=== PATIENT | male | born 1960 | race Caucasian/White ===

== ENCOUNTER 2017-11-30 11:38 | Emergency (ER) | payer BC ==
[2017-11-30] MEDS ORDERED: IPRATROPIUM/ALBUTEROL (0.5MG/3MG) NEB INH ONE (12:43)
[2017-11-30] MEDS ORDERED: METHYLPREDNISOLONE PF 125MG/VIAL IM ONE (12:45)
--- NOTE | 2017-11-30 12:49 | Emergency Department Record ---
History of Present Illness - General Chief Complaint: Confusion Stated Complaint: CONFUSION,TIRED,COUGH Time Seen by Provider: 11/30/17 12:23 Source: Patient, RN notes reviewed Mode of Arrival: Wheelchair - History of Present Illness Initial Comments: 2 weeks of congestion and confused and SOB with hypoxia and hypotension. Smokes 2 packs per day. confused started today and breathing much worse over the last 2 days. Onset/Timin -: Days(s) Associated Symptoms: Cough, Malaise, Weakness - Max Coma Scale Eye Response: (4) Open spontaneously Motor Response: (6) Obeys commands Verbal Response: (5) Oriented [place] Total: 15 - Related Data Home Medications Medication Instructions Recorded Confirmed Last Taken Hydrocodone/Acetaminophen [[place] 1 each PO QID 11/30/17 11/30/17 Unknown 5-325 Tablet] Lorazepam [Ativan] 0.5 mg PO ASDIR 11/30/17 11/30/17 Unknown Allergies Allergy/AdvReac Type Severity Reaction Status Date / Time No Known Allergies Allergy no Unverified 11/30/17 12:42 allergies Travel Screening - Travel/Exposure Within Last 30 Days Have you traveled within the last 30 days?: No Review of Systems Reviewed: No additional complaints except as noted below Constitutional: Reports: As per HPI, Weakness. Denies: Chills, Fever, Malaise, Night sweats, Weight change Eyes: Reports: As per HPI. Denies: Eye discharge, Eye pain, Photophobia, Vision change ENT: Reports: As per HPI, Congestion. Denies: Dental pain, Ear pain, Epistaxis , Hearing loss, Throat pain Respiratory: Reports: As per HPI, Cough, Dyspnea, Wheezes. Denies: Hemoptysis, Stridor Cardiovascular: Reports: As per HPI. Denies: Arrhythmia, Chest pain, Dyspnea on exertion, Edema, Murmurs, Orthopnea, Palpitations, Paroxysmal nocturnal dyspnea, Rheumatic Fever, Syncope Endocrine: Reports: As per HPI. Denies: Fatigue, Heat or cold intolerance, Polydipsia, Polyuria Gastrointestinal: Reports: As per HPI. Denies: Abdominal pain, Constipation, Diarrhea, Hematemesis, Hematochezia, Melena, Nausea, Vomiting Genitourinary: Reports: As per HPI. Denies: Dysuria, Frequency, Hematuria, Incontinence, Retention, Testicular pain, Testicular mass, Urgency Musculoskeletal: Reports: As per HPI. Denies: Arthralgia, Back pain, Gout, Joint swelling, Myalgia, Neck pain Skin: Reports: As per HPI. Denies: Bruising, Change in color, Change in hair/ nails, Lesions, Pruritus, Rash Neurological: Reports: As per HPI. Denies: Abnormal gait, Confusion, Headache, Numbness, Paresthesias, Seizure, Tingling, Tremors, Vertigo, Weakness Psychiatric: Reports: As per HPI. Denies: Anxiety, Auditory hallucinations, Depression, Homicidal thoughts, Suicidal thoughts, Visual hallucinations Hematological/Lymphatic: Reports: As per HPI. Denies: Anemia, Blood Clots, Easy bleeding, Easy bruising, Swollen glands Physical Exam - General General Appearance: Oriented x3, Cooperative, Severe distress - Head Head exam: Normal inspection - Eye Eye exam: Normal appearance, PERRL Pupils: Normal accommodation - ENT ENT exam: Normal exam, Mucous membranes moist, Normal external ear exam, Normal orophraynx, TM's normal bilaterally Ear exam: Normal external inspection. negative: External canal tenderness Nasal Exam: Normal inspection. negative: Discharge, Sinus tenderness Mouth exam: Normal external inspection, Tongue normal Teeth exam: Normal inspection. negative: Dental caries Throat exam: Normal inspection. negative: Tonsillar erythema, Tonsillar exudate - Neck Neck exam: Normal inspection, Full ROM. negative: Tenderness - Respiratory Respiratory exam: Normal lung sounds bilaterally. negative: Respiratory distress - Cardiovascular Cardiovascular Exam: Regular rate, Normal rhythm, Normal heart sounds - GI/Abdominal GI/Abdominal exam: Soft, Normal bowel sounds. negative: Tenderness - Rectal Rectal exam: Deferred - exam: Deferred - Extremities Extremities exam: Normal inspection, Full ROM, Normal capillary refill. negative: Tenderness - Back Back exam: Reports: Normal inspection, Full ROM. Denies: Muscle spasm, Rash noted, Tenderness - Neurological Neurological exam: Alert, Normal gait, Oriented X3, Reflexes normal - Psychiatric Psychiatric exam: Normal affect, Normal mood - Skin Skin exam: Dry, Intact, Normal color, Warm Course Vital Signs 11/30/17 11/30/17 12:19 12:38 Temperature 99.6 F Pulse Rate 101 H 104 H Respiratory 26 H 20 Rate Blood Pressure 78/56 Pulse Ox 70 L 87 L - Reevaluation(s) Reevaluation #1: discussed case with Dr. Nguyen ICU at [facility] and patient was acceptted and will transport via ambulance 11/30/17 14:27 Medical Decision Making - Data Complexity MDM Data: Labs Ordered and/or Reviewed (abg ph 7.27,pco2 68,Po2 65 ,hco3 30.1, trop t 0.1, bun 65, creat 3.6 ), X-Ray Ordered and/or Reviewed (copd infiltrate right lower lobe infectious or neoplasm), EKG Ordered and/or Reviewed (NSR,no acute changes) - Lab Data Result diagrams: 11/30/17 12:51 11/30/17 12:51 Disposition Clinical Impression: SOB (shortness of breath), Elevated troponin, COPD exacerbation Hypotension Qualifiers: Hypotension type: unspecified hypotension type Qualified Code(s): I95.9 - Hypotension, unspecified Respiratory failure Qualifiers: Chronicity: acute Respiratory failure complication: hypoxia Qualified Code(s): J96.01 - Acute respiratory failure with hypoxia Renal failure Qualifiers: Renal failure chronicity: acute Acute renal failure type: unspecified Qualified Code(s): N17.9 - Acute kidney failure, unspecified Pneumonia Qualifiers: Pneumonia type: due to unspecified organism Laterality: right Lung location: lower lobe of lung Qualified Code(s): J18.1 - Lobar pneumonia, unspecified organism Disposition: Acute Care Hospital Transfer Condition: (3) Guarded Forms: Patient Portal Access Time of Disposition: 14:29 Quality - Quality Measures Quality Measures: N/A - Blood Pressure Screening Does Patient Have Any of the Following: No Blood Pressure Classification: Normal BP Reading Systolic Measurement: 78 Diastolic Measurement: 56 Screening for High Blood Pressure: < Normal BP, F/U Not Required > [G8783]
--- NOTE | 2017-11-30 12:52 | Emergency Department Record ---
History of Present Illness - General Chief Complaint: Confusion Stated Complaint: CONFUSION,TIRED,COUGH Time Seen by Provider: 11/30/17 12:23 Mode of Arrival: Wheelchair - History of Present Illness Onset/Timin -: Days(s) Associated Symptoms: Cough, Malaise, Weakness - Max Coma Scale Eye Response: (4) Open spontaneously Motor Response: (6) Obeys commands Verbal Response: (5) Oriented [place] Total: 15 - Related Data Home Medications Medication Instructions Recorded Confirmed Last Taken Hydrocodone/Acetaminophen [[place] 1 each PO QID 11/30/17 11/30/17 Unknown 5-325 Tablet] Lorazepam [Ativan] 0.5 mg PO ASDIR 11/30/17 11/30/17 Unknown Allergies Allergy/AdvReac Type Severity Reaction Status Date / Time No Known Allergies Allergy no Unverified 11/30/17 12:42 allergies Travel Screening - Travel/Exposure Within Last 30 Days Have you traveled within the last 30 days?: No Review of Systems Constitutional: Reports: As per HPI, Weakness. Denies: Chills, Fever, Malaise, Night sweats, Weight change Eyes: Reports: As per HPI. Denies: Eye discharge, Eye pain, Photophobia, Vision change ENT: Reports: As per HPI, Congestion. Denies: Dental pain, Ear pain, Epistaxis , Hearing loss, Throat pain Respiratory: Reports: As per HPI, Cough, Dyspnea, Wheezes. Denies: Hemoptysis, Stridor Cardiovascular: Reports: As per HPI. Denies: Arrhythmia, Chest pain, Dyspnea on exertion, Edema, Murmurs, Orthopnea, Palpitations, Paroxysmal nocturnal dyspnea, Rheumatic Fever, Syncope Endocrine: Reports: As per HPI. Denies: Fatigue, Heat or cold intolerance, Polydipsia, Polyuria Gastrointestinal: Reports: As per HPI. Denies: Abdominal pain, Constipation, Diarrhea, Hematemesis, Hematochezia, Melena, Nausea, Vomiting Genitourinary: Reports: As per HPI. Denies: Dysuria, Frequency, Hematuria, Incontinence, Retention, Testicular pain, Testicular mass, Urgency Musculoskeletal: Reports: As per HPI. Denies: Arthralgia, Back pain, Gout, Joint swelling, Myalgia, Neck pain Skin: Reports: As per HPI. Denies: Bruising, Change in color, Change in hair/ nails, Lesions, Pruritus, Rash Neurological: Reports: As per HPI. Denies: Abnormal gait, Confusion, Headache, Numbness, Paresthesias, Seizure, Tingling, Tremors, Vertigo, Weakness Psychiatric: Reports: As per HPI. Denies: Anxiety, Auditory hallucinations, Depression, Homicidal thoughts, Suicidal thoughts, Visual hallucinations Hematological/Lymphatic: Reports: As per HPI. Denies: Anemia, Blood Clots, Easy bleeding, Easy bruising, Swollen glands Past Medical History - SOCIAL HISTORY Smoking Status: Current every day smoker Alcohol Use: None Drug Use: Occasional Drug Use Detail:: Marijuana - RESPIRATORY Hx Respiratory Disorders: No - CARDIOVASCULAR Hx Cardio Disorders: Yes Hx Hypertension: Yes - NEURO Hx Neuro Disorders: No - GI Hx GI Disorders: No - Hx Genitourinary Disorders: No - ENDOCRINE Hx Endocrine Disorders: No - MUSCULOSKELETAL Hx Musculoskeletal Disorders: Yes - PSYCH Hx Psych Problems: Yes Hx Anxiety: Yes - HEMATOLOGY/ONCOLOGY Hx Hematology/Oncology Disorders: No Family Medical History Any Significant Family History?: No Physical Exam - General General Appearance: Oriented x3, Cooperative, Severe distress - Head Head exam: Normal inspection - Eye Eye exam: Normal appearance, PERRL Pupils: Normal accommodation - ENT ENT exam: Normal exam, Mucous membranes moist, Normal external ear exam, Normal orophraynx, TM's normal bilaterally Ear exam: Normal external inspection. negative: External canal tenderness Nasal Exam: Normal inspection. negative: Discharge, Sinus tenderness Mouth exam: Normal external inspection, Tongue normal Teeth exam: Normal inspection. negative: Dental caries Throat exam: Normal inspection. negative: Tonsillar erythema, Tonsillar exudate - Neck Neck exam: Normal inspection, Full ROM. negative: Tenderness - Respiratory Respiratory exam: Normal lung sounds bilaterally. negative: Respiratory distress - Cardiovascular Cardiovascular Exam: Regular rate, Normal rhythm, Normal heart sounds - GI/Abdominal GI/Abdominal exam: Soft, Normal bowel sounds. negative: Tenderness - Rectal Rectal exam: Deferred - exam: Deferred - Extremities Extremities exam: Normal inspection, Full ROM, Normal capillary refill. negative: Tenderness - Back Back exam: Reports: Normal inspection, Full ROM. Denies: Muscle spasm, Rash noted, Tenderness - Neurological Neurological exam: Alert, Normal gait, Oriented X3, Reflexes normal - Psychiatric Psychiatric exam: Normal affect, Normal mood - Skin Skin exam: Dry, Intact, Normal color, Warm Course Vital Signs 11/30/17 11/30/1711/30/18 12:19 12:38 12:43 Temperature 99.6 F Pulse Rate 101 H 104 H Pulse Rate [ 102 H Bottom Turning Lathe [place] ] Respiratory 26 H 20 24 Rate Blood Pressure 78/56 Blood Pressure 82/57 [Left Arm] Pulse Ox 70 L 87 L 87 L 11/30/17 12:47 Temperature Pulse Rate 102 H Pulse Rate [ Bottom Turning Lathe [place] ] Respiratory 24 Rate Blood Pressure Blood Pressure [Left Arm] Pulse Ox 90 L Medical Decision Making - Data Complexity MDM Data: Labs Ordered and/or Reviewed, X-Ray Ordered and/or Reviewed ( bilateral infiltrate scant) - Lab Data Result diagrams: 11/30/17 12:51 11/30/17 12:51 Disposition Clinical Impression: SOB (shortness of breath), Renal failure, Elevated troponin, COPD exacerbation , Pneumonia Hypotension Qualifiers: Hypotension type: unspecified hypotension type Qualified Code(s): I95.9 - Hypotension, unspecified Respiratory failure Qualifiers: Chronicity: acute Respiratory failure complication: hypoxia Qualified Code(s): J96.01 - Acute respiratory failure with hypoxia Disposition: Acute Care Hospital Transfer Condition: (3) Guarded Forms: Patient Portal Access Quality - Quality Measures Quality Measures: N/A - Blood Pressure Screening Does Patient Have Any of the Following: No Blood Pressure Classification: Normal BP Reading Systolic Measurement: 78 Diastolic Measurement: 56 Screening for High Blood Pressure: < Normal BP, F/U Not Required > [G8783]
[2017-11-30] MEDS ORDERED: 0.9 % SODIUM CHLORIDE 1000ML 1,000 ML IV SCH ×2 (13:00→14:30)
[2017-11-30 13:15] LABS: BASO % 0.2 % (0-6); HEMATOCRIT 49.7 % (42.0-52.0); HEMOGLOBIN 15.9 gm/dl (14.0-18.0); LYMPH % 3.4 % (16-45); MEAN CELL VOLUME 104.2 fl (81-97); MEAN CORPUSCULAR HEMOGLOBIN 33.3 pg (27-33); MEAN PLATELET VOLUME 10.7 fl (7.4-10.4); MONO % 10.5 % (0-9); PLATELET COUNT 194 K/uL (130-400); RED BLOOD COUNT 4.77 M/uL (4.40-5.70); RED CELL DISTRIBUTION WIDTH 13.7 % (11.5-14.5)
[2017-11-30 13:31] LABS: CREATININE 3.6 mg/dL (0.7-1.2); TOTAL PROTEIN 7.5 g/dL (6.6-8.7)
[2017-11-30 13:35] LABS: ACETAMINOPHEN 5.6 ug/mL (10.0-30.0)
[2017-11-30 13:36] LABS: ALBUMIN 4.1 g/dL (4.0-5.0); ALKALINE PHOSPHATASE 104 U/L (40-129); ALT/SGPT 65 U/L (<41); AMMONIA 40 umol/L (16.0-60.0); AST/SGOT 87 U/L (10.0-50.0); BILIRUBIN,DIRECT 0.5 mg/dL (0-0.3)
[2017-11-30 13:37] LABS: ARTERIAL BLOOD GAS BASE EXCESS 1.5 mmol/L (-2 - 3); ARTERIAL BLOOD GAS HCO3 30.1 mmol/L (18-23); ARTERIAL BLOOD GAS PCO2 68.1 mmHg (35-48); ARTERIAL BLOOD GAS pH 7.27 (7.35-7.45)
[2017-11-30 13:38] LABS: SALICYLATE < 0.3 mg/dL (2.8-20)
[2017-11-30 13:45] LABS: INR 1.2; PARTIAL THROMBOPLASTIN TIME 33.8 SECONDS (24.5-39.1); PROTHROMBIN TIME (PATIENT) 12.5 SECONDS (9.5-12.1)
[2017-11-30] MEDS ORDERED: CEFTRIAXONE SODIUM 1 GM in 0.9 % SODIUM CHLORIDE 100ML 100 ML IVPB ONE (13:59)
[2017-11-30 14:00] LABS: ALLEN TEST NOT DONE
[2017-11-30] MEDS ORDERED: AZITHROMYCIN 250 MG TABLET PO ONE (14:26)
--- NOTE | 2017-12-01 20:50 | RADIOLOGY REPORT ---
EXAM: CHEST 1 VIEW HISTORY: SHORTNESS OF BREATH. TECHNIQUE: Portable single view of the chest. COMPARISON: Chest x-ray 04/25/2002. FINDINGS: Large lung volumes again seen with linear bands of opacity in both lower lobes, increased in the interim. There is also some patchy opacities in the right medial lower lung. No pleural effusion. The cardiomediastinal silhouette is within normal limits. Bony structures are unremarkable. IMPRESSION: FINDINGS OF COPD. THERE MAY BE SOME SUPERIMPOSED LUNG OPACITIES IN THE LOWER RIGHT LUNG. RECOMMEND FOLLOW-UP RADIOGRAPHS. JOB NUMBER: [id number] [facility]
== END 2017-11-30 15:55 | disposition short-term general hospital (02) ==
LOC: ER 11:38
DX: J44.0 Chronic obstructive pulmonary disease with (acute) lower respiratory infection (principal); J18.9 Pneumonia, unspecified organism; F17.210 Nicotine dependence, cigarettes, uncomplicated; I95.9 Hypotension, unspecified; I10 Essential (primary) hypertension; N17.9 Acute kidney failure, unspecified; J96.01 Acute respiratory failure with hypoxia; R79.89 Other specified abnormal findings of blood chemistry
CPT/HCPCS: 99285 ×2; 96372; 96365; 96361; 83605; 82140; 85730; 85610; 82375; 80076; 80048; 82803; 84484; 85379; 85027; 71045; 94640; 36600; 93005; 93010; G0480 ×3; 80320; 80329; J2930; J7030

== ENCOUNTER 2018-02-17 06:29 | Day surgery (SDC) | payer BC ==
[~2018-02-17 06:29] MED LIST: ACETAMINOPHEN 1,000 MG/100 ML BTL IV ONE; CEFAZOLIN 2 Gram 2 GM/50 ML BAG IVPB ONE
[2018-02-17] MEDS ORDERED: HYDROMORPHONE HCL 2 MG/ML VIAL IV ONE (06:30)
[2018-02-17] MEDS ORDERED: EPHEDRINE SULFATE 50 MG/ML ML IV ONE (06:30)
[2018-02-17] MEDS ORDERED: SEVOFLURANE 250 ML INH ONE (06:30)
[2018-02-17] MEDS ORDERED: HYDROCODONE/APAP 5/325MG TABLET PO ONE (06:30)
[2018-02-17] MEDS ORDERED: LIDOCAINE 2% MDV (20MG/ML) 20ML VIAL IV ONE (06:30)
[2018-02-17] MEDS ORDERED: PROPOFOL 10 MG/ML VIAL IV ONE (06:30)
[2018-02-17] MEDS ORDERED: BUPIVACAINE 0.25% W/EPI MPF 30ML VIAL IVP ONE (06:30)
[2018-02-17] MEDS ORDERED: MIDAZOLAM HCL 2MG/2ML VIAL IV ONE (06:30)
[2018-02-17] MEDS ORDERED: ONDANSETRON HCL IV 4 MG/2 ML VIAL IVP ONE (06:30)
[2018-02-17] MEDS ORDERED: FENTANYL PF 100MCG/2ML VIAL IV ONE (06:30)
[2018-02-17] MEDS ORDERED: DEXAMETHASONE 4 MG/ML 1ML VIAL IVP ONE (06:30)
[2018-02-17 06:47] LABS: BASO % 1.2 % (0-6); EOS % 2.4 % (0-6); GRAN % 66.8 % (47-80); HEMATOCRIT 47.6 % (42.0-52.0); HEMOGLOBIN 15.7 gm/dl (14.0-18.0); LYMPH % 21.2 % (16-45); MEAN CELL VOLUME 99.4 fl (81-97); MEAN CORPUSCULAR HEMOGLOBIN 32.8 pg (27-33); MONO % 8.4 % (0-9); PLATELET COUNT 232 K/uL (130-400); RED BLOOD COUNT 4.79 M/uL (4.40-5.70); RED CELL DISTRIBUTION WIDTH 13.1 % (11.5-14.5); WHITE BLOOD COUNT W/O DIFF 9.2 K/uL (4.2-12.2)
--- NOTE | 2018-02-19 12:30 | Operative Note ---
DATE OF SURGERY: 02/17/2018 Surgeon: Howard Pierson DO PREOPERATIVE DIAGNOSIS: Left inguinal hernia. POSTOPERATIVE DIAGNOSIS: Left inguinal hernia, indirect. OPERATION: Open left inguinal herniorrhaphy with mesh. Indication: The patient is a 57-year-old male who presented to the office with pain and bulging in his left inguinal region. On exam, he had a reducible hernia noted. We did discuss repair. Risks, benefits, and alternatives were discussed. Risks include bleeding, infection, acute or chronic pain, recurrence. He understood this fully. He is on chronic narcotics at home. Therefore, we did discuss potential pain control afterward as well. PROCEDURE: After consent was signed and questions answered, he was taken to the operating room and placed in a supine position. General anesthesia was administered per the department of anesthesia. The patient's left inguinal region was shaved of hair and prepped and draped in a sterile fashion. Adequate timeout was performed. His site and identity were confirmed. He did receive preoperative antibiotic as well as preoperative block per the department of anesthesia. At this time, the oblique region was anesthetized with a total of 4 mL of 0.25% Sensorcaine with epinephrine. A 4 cm oblique incision was made. This was carried down through Matthew layer to the aponeurosis of the external oblique. This was cleaned off. A stephen was made with a scalpel blade and enlarged through the superficial inguinal ring with Metzenbaum scissors. Care was taken not to injure the underlying ilioinguinal nerve or spermatic cord. At this time, superior and inferior flaps were developed and a [place] was placed on the spermatic cord. This was dissected free from the underlying transversalis fascia and retracted laterally with a Leo drain. Floor was inspected and noted to be free of any direct herniation. Cremasteric fibers were then taken down. There was an indirect hernia sac noted. High ligation was done with 0 Vicryl. At this time, a left-sided ProGrip mesh was obtained. This was placed in the floor of the inguinal canal with excellent overlap of the pubic tubercle. Stitches went to the level of pubic tubercle, the second portion of the inguinal ligament, internal oblique, aponeurosis. The lateral triangle was protected with the lateral aspect of the mesh. At this time, the aponeurosis was closed over the cord with 2-0 Vicryl, the Matthew layer was closed with 3-0 Vicryl, and skin was closed with 4-0 Vicryl. Steri-Strips were applied. He was taken to the recovery room in satisfactory condition. FINDINGS ON SURGERY: Left inguinal hernia, indirect, repaired as above. MTDD
== END 2018-02-17 09:50 | disposition home or self-care (01) ==
LOC: SUR 06:29
PROVIDERS: ATTEND Surgery
DX: K40.90 Unilateral inguinal hernia, without obstruction or gangrene, not specified as recurrent (principal); I10 Essential (primary) hypertension; J44.9 Chronic obstructive pulmonary disease, unspecified; F17.210 Nicotine dependence, cigarettes, uncomplicated
CPT/HCPCS: 49505; 00830; 64425; 85025; J2405; J3010; J1170; J0690; 76942

== ENCOUNTER 2019-05-18 14:40 | Emergency (ER) | payer BC ==
[2019-05-18] MEDS ORDERED: 0.9 % SODIUM CHLORIDE 1,000 ML BAG IV ONE (15:10)
[2019-05-18] MEDS ORDERED: PROMETHAZINE HCL 25 MG/ML VIAL IV ONE (15:10)
--- NOTE | 2019-05-18 15:18 | Emergency Department Record ---
History of Present Illness - General Chief complaint: Vomiting Stated complaint: VOMITTING Time Seen by Provider: 05/18/19 15:10 Source: Patient, Family () Mode of Arrival: Ambulatory Limitations: No limitations - History of Present Illness Initial comments: Pt with complaint of vomiting 5 days ago. Pt states he had a full day of vomiting "stomach fluid without blood". The next day he was fine and ate "some sausage and pizza". Since that "good day" he has had nausea everyday with decreased appetite and today began to have watery diarrhea. No fever, no travel, no new meds, no new foods, no sick contacts. Pt is a smoker but denies any alcohol use. No hx of similar. Pt asks "is this all from my anxiety?" Relates a life time hx of anxiety. Onset/Timin -: Days(s) Description of Vomiting: Watery Location: Diffuse Radiation: None Improves with: None Worsens with: None Associated Symptoms: Loss of appetite, Nausea/vomiting - Related Data Home Medications Medication Instructions Recorded Confirmed Last Taken Alprazolam [Xanax] 0.25 mg PO ASDIR 05/18/19 05/18/19 Unknown Hydrocodone/Acetaminophen [[place] 1 each PO ASDIR 05/18/19 05/18/19 Unknown 10-325 Tablet] Previous Rx's Medication Instructions Recorded Hydroxyzine Pamoate [Vistaril] 25 mg PO Q6H PRN 5 Days #20 capsule 05/18/19 Allergies Allergy/AdvReac Type Severity Reaction Status Date / Time No Known Allergies Allergy no Verified 05/18/19 14:57 allergies Travel Screening - Travel/Exposure Within Last 30 Days Have you traveled within the last 30 days?: No Review of Systems Constitutional: Denies: Chills, Fever, Malaise Eyes: Denies: Eye pain, Photophobia ENT: Denies: Congestion, Throat pain Respiratory: Denies: Cough, Dyspnea Cardiovascular: Denies: Arrhythmia, Chest pain, Syncope Endocrine: Denies: Fatigue Gastrointestinal: Reports: Abdominal pain, Diarrhea, Nausea, Vomiting. Denies: Hematemesis, Hematochezia Genitourinary: Denies: Dysuria, Incontinence Musculoskeletal: Denies: Back pain Skin: Denies: Bruising, Rash Neurological: Denies: Confusion, Headache, Tingling Psychiatric: Denies: Anxiety Hematological/Lymphatic: Denies: Anemia Past Medical History - SOCIAL HISTORY Smoking Status: Current every day smoker Alcohol Use: None Drug Use: None - RESPIRATORY Hx Respiratory Disorders: Yes Hx COPD: Yes Hx Pneumonia: Yes - CARDIOVASCULAR Hx Cardio Disorders: Yes Hx Hypertension: Yes - NEURO Hx Neuro Disorders: No - GI Hx GI Disorders: No - Hx Genitourinary Disorders: Yes Hx Kidney Stones: Yes (hx of) - ENDOCRINE Hx Endocrine Disorders: No - MUSCULOSKELETAL Hx Musculoskeletal Disorders: Yes Hx Arthritis: Yes - PSYCH Hx Psych Problems: Yes Hx Anxiety: Yes - HEMATOLOGY/ONCOLOGY Hx Hematology/Oncology Disorders: No Family Medical History Any Significant Family History?: Yes Hx Cancer: Mother Physical Exam - General General Appearance: Alert, Oriented x3, Cooperative, No acute distress - Head Head exam: Atraumatic, Normocephalic - Eye Eye exam: Normal appearance, PERRL, EOMI - ENT ENT exam: Mucous membranes moist Ear exam: Normal external inspection Nasal Exam: Normal inspection Mouth exam: Normal external inspection Teeth exam: Normal inspection Throat exam: Normal inspection - Neck Neck exam: Normal inspection, Full ROM. negative: Lymphadenopathy - Respiratory Respiratory exam: Normal lung sounds bilaterally. negative: Respiratory distress, Rhonchi, Wheezes - Cardiovascular Cardiovascular Exam: Regular rate, Normal rhythm. negative: Tachycardia - GI/Abdominal GI/Abdominal exam: Soft, Normal bowel sounds. negative: Distended, Guarding, Hy poactive bowel sounds, Rebound, Tenderness - Rectal Rectal exam: Deferred - exam: Deferred - Extremities Extremities exam: Normal inspection. negative: Tenderness - Back Back exam: Reports: Normal inspection - Neurological Neurological exam: Alert, Normal gait, Oriented X3 - Psychiatric Psychiatric exam: Normal affect, Normal mood - Skin Skin exam: Normal color. negative: Rash Course Vital Signs 05/18/19 14:54 Temperature 98.2 F Pulse Rate 76 Respiratory 18 Rate Blood Pressure 131/91 Pulse Ox 98 - Reevaluation(s) Reevaluation #1: 05/18/19 15:18 seen with in room. IV fluids, meds, labs, xrays ordered.. Medical Decision Making - Lab Data Result diagrams: 05/18/19 15:00 05/18/19 15:00 Disposition Disposition: Discharge Clinical Impression: Vomiting and diarrhea, Anxiety Disposition: Home, Self-Care Condition: (2) Stable Instructions: Acute Nausea and Vomiting (ED) Additional Instructions: Take meds as needed for nausea. Clear liquid diet and advance as tolerated. See you family doctor in 2-3 days Discuss colonoscopy with your family doctor - recommended at 51 year of age screening for colon cancer. Return to the ED as needed. Prescriptions: Hydroxyzine Pamoate [Vistaril] 25 mg PO Q6H PRN 5 Days #20 capsule PRN Reason: Nausea Forms: Patient Portal Access Time of Disposition: 16:20 Quality - Quality Measures Quality Measures: N/A - Blood Pressure Screening Does Patient Have Any of the Following: No Blood Pressure Classification: Pre-Hypertensive BP Reading Systolic Measurement: 126 Diastolic Measurement: 76 Screening for High Blood Pressure: < Pre-Hypertensive BP, F/U Documented > [G8950] Pre-Hypertensive Follow-up Interventions: Follow-up with rescreen every year.
[2019-05-18 15:26] LABS: EOS % 1.1 % (0-6); GRAN % 67.1 % (47-80); HEMATOCRIT 49.3 % (42.0-52.0); HEMOGLOBIN 16.1 gm/dl (14.0-18.0); LYMPH % 20.9 % (16-45); MEAN CELL VOLUME 96.3 fl (81-97); MEAN CORPUSCULAR HEMOGLOBIN 31.4 pg (27-33); MEAN CORPUSCULAR HGB CONC 32.7 g/dl (32-36); MEAN PLATELET VOLUME 10.9 fl (7.4-10.4); MONO % 9.9 % (0-9); PLATELET COUNT 165 K/uL (130-400); RED BLOOD COUNT 5.12 M/uL (4.40-5.70); WHITE BLOOD COUNT W/O DIFF 8.8 K/uL (4.2-12.2)
[2019-05-18 15:38] LABS: URINE APPEARANCE CLEAR; URINE BILIRUBIN NEGATIVE (NEGATIVE); URINE COLOR YELLOW; URINE GLUCOSE (UA) NEGATIVE (NEGATIVE); URINE KETONE NEGATIVE (NEGATIVE); URINE PROTEIN NEGATIVE (NEGATIVE); URINE UROBILINOGEN 0.2 E.U./dL (0.20 - 1.00)
[2019-05-18 15:39] LABS: BLOOD UREA NITROGEN 13 mg/dL (6-20); CREATININE 0.9 mg/dL (0.7-1.2); EST GLOMERULAR FILTRATION RATE > 60 mL/min; URINE BLOOD TRACE-NONHEMOLYZED (NEGATIVE); URINE LEUKOCYTE ESTERASE NEGATIVE (NEGATIVE); URINE NITRITE NEGATIVE (NEGATIVE); URINE SQUAMOUS EPITHELIAL CELL 0 - 2 /hpf; URINE WBC 0 - 2 (0-2/hpf)
[2019-05-18 15:42] LABS: GLUCOSE,RANDOM 103 mg/dL (74-109)
[2019-05-18 15:44] LABS: ALT/SGPT 16 U/L (<41); AST/SGOT 18 U/L (10.0-50.0)
[2019-05-18 15:45] LABS: ALB/GLOB RATIO 1.8 (1.1-1.8); ALBUMIN 4.5 g/dL (4.0-5.0); ALKALINE PHOSPHATASE 66 U/L (40-129); LDH 179 U/L (135-225)
--- NOTE | 2019-05-18 16:31 | RADIOLOGY REPORT ---
EXAMINATION: Acute Abdomen Series - (abdomen 2 views, supine and upright, chest single view) EXAM DATE: 05/18/2019 3:56 PM TECHNIQUE: Complete acute abdomen series, including supine, erect, and/or decubitus views, single vie w chest INDICATION: N/V/D with AP Findings: Abdomen: The acute abdomen series shows no abnormality of intestinal gas pattern. There is no free intraperitoneal air. There is a moderate amount of stool in the colon. Chest: Mild scarring or atelectasis at the left lung base, otherwise negative. Dictated by: Saravanan Irby MD on 05/18/2019 4:20 PM. .
== END 2019-05-18 16:42 | disposition home or self-care (01) ==
LOC: ER 14:40
DX: R11.2 Nausea with vomiting, unspecified (principal); R19.7 Diarrhea, unspecified; R10.9 Unspecified abdominal pain; F41.9 Anxiety disorder, unspecified; F17.210 Nicotine dependence, cigarettes, uncomplicated; I10 Essential (primary) hypertension; J44.9 Chronic obstructive pulmonary disease, unspecified
CPT/HCPCS: 74022; 80053; 81001; 83615; 85025; 96361; 96374; 99284; J2550; J7030